=== PATIENT | male | born 1940 | race Caucasian/White ===

== ENCOUNTER 2016-10-11 11:26 | Observation (INO) | payer MEDICARE, OTHER ==
--- NOTE | 2016-10-11 12:24 | EDPRACDOC ---
- General Information Chief Complaint: Generalized Weakness Stated Complaint: ABNORMAL LABS Time Seen by Provider: 10/11/16 12:10 Information Source: Patient Mode Of Arrival: Ambulance Home Medications: Home Medications Cyanocobalamin (Vitamin B-12) [Vitamin B-12 (cyanocobalamin)] 1,000 mcg PO QAM 10/01/13 Hydroxychloroquine Sulfate [Plaquenil] 200 mg PO BID 10/01/13 Loratadine [Claritin] 10 mg PO QAM 10/01/13 Sucralfate [Carafate] 1 gm PO BID 10/01/13 Amlodipine [Norvasc] 10 mg PO 0900 10/11/16 Amoxicillin/Potassium Clav [Augmentin 875-125 Tablet] 1 each PO .[id number] Bupropion HCl [Wellbutrin] 75 mg PO BID 10/11/16 Calcium Polycarbophil [Fiber Lax] 625 mg PO BID 10/11/16 Cephalexin Monohydrate [Keflex] 500 mg PO BID 10/11/16 Famotidine [Pepcid] 20 mg PO BID 10/11/16 HydrALAZINE (Cardiovascular) [Apresoline] 25 mg TUBE TID 10/11/16 L.acidoph & Paracasei,B.lactis [Probiotic] 1 each PO BID 10/11/16 Losartan Potassium [Cozaar] 100 mg TUBE DAILY 10/11/16 Melatonin/Pyridoxine [Melatonin 3 mg Tablet] 1 each TUBE 199910/11/16 Morphine 0.5mg/Ml Vial 15 mg PEG BID PRN 10/11/16 Ondansetron [Zofran Odt] 4 mg PO TID PRN 10/11/16 Prednisone [Deltasone, Orasone] 10 mg PO 0900 10/11/16 Saliva Substitution Combo No.9 [Biotene] 237 ml MM .Q2H 10/11/16 Tamsulosin HCl [Flomax] 0.4 mg PO 2100 10/11/16 Trazodone HCl [Desyrel] 50 mg PO QHS PRN 10/11/16 Allergies/Adverse Reactions: Allergies Allergy/AdvReac Type Severity Reaction Status Date / Time clindamycin [From Cleocin] Allergy Unknown Verified 10/11/16 11:49 levofloxacin [From Levaquin] Allergy Dizziness Verified 10/11/16 11:49 Sulfa (Sulfonamide Allergy Unknown Verified 10/11/16 11:49 Antibiotics) sulfamethoxazole Allergy Difficulty Verified 10/11/16 11:49 [From Bactrim] Breathing trimethoprim [From Bactrim] Allergy Difficulty Verified 10/11/16 11:49 Breathing - History of Present Illness Onset: unknown Exact Onset of Symptoms: Unknown HPI: Pt states yesterday during PT patient became sob and tachycardia. Pt states his doctor ordered labs and xray and was told had low hgb and "a touch" of pna. C/o generalized weakness and fatigue, sob. Pt states recent admission for MRSA for 9 wks and now is in rehab. Symptoms Started: Reports: Gradually Symptoms Description: Constant Weakness: Bilateral: Generalized Symptoms: Reports: Weak Symptom Severity: Reports: Unable to performs ADL's Relevant History of: Denies: O, Anemia, CVA, DM, Electrolyte disorder, GI Bleed , [place], TIA Associated signs and symptoms:: Reports: None ED Past Medical History - History Reviewed Yes Nurses notes reviewed and agree except as marked - Patient Medical History Cardiac History: Reports: Coronary Artery Disease, Hypertension, Hypercholesterolemia, Valvular Heart Disease Respiratory History: Reports: COPD, Cough, Chronic Bronchitis, Pneumonia, Emphysema GI/ History: Reports: Renal (Kidney) Cancer (right kidney.), Kidney (Renal Surgery) (Right-sided nephrectomy 2007), Gastroesophageal Reflux, Diverticulosis Musculoskeletal History: Reports: Osteoarthritis Psychological History: Denies: Depression, Substance Use Disorder Systemic History: Reports: Cancer (RIGHT RENAL), Anemia, Lupus (and Sjogren's) Surgical History: Reports: Hernia Surgery (left inguinal 1997), Tonsillectomy/ Adnoidectomy, Other (Colostomy 05/2014 for diverticular disease. Colostomy takedown 09/17/14. Foot) - Family Medical History Reports: Hypertension (Mother), Cancer (Father- leukemia. Mother- colon), Stroke (GRANDMOTHER), Cardiac Disorders (Mother- CHF). Denies: Diabetes - Social Medical History Smoking Status: Never smoker Social History: Denies: Substance Use Disorder ETOH: None Substance Abuse: None EDM Review of Systems - Review of Systems Constitutional: Fatigue, Weakness Ears: No Symptoms Reported. negative: Pain, Hearing Loss, Drainage, Ear Pulling Throat: No Symptoms Reported. negative: Pain, Swelling Nose: No Symptoms Reported. negative: Congestion, Bleeding, Discharge, Injection, Swelling, Deformity, Ecchymosis, Tender, Abrasion, Laceration Mouth: No Symptoms Reported. negative: Pain, Drooling Respiratory: Shortness of Breath Cardiovascular: No Symptoms Reported. negative: Chest Pain, Palpitations, Syncope, Edema, Orthopnea, PND, Skin Mottling, Cyanosis Gastrointestinal: No Symptoms Reported. negative: Pain, Constipation, Nausea, Vomiting, Diarrhea, Melena, Formula Intolerance Genitourinary: No Symptoms Reported. negative: Dysuria, Hematuria, Frequency, Discharge, Bleeding, Testicular Pain, Neurological: No Symptoms Reported. negative: Headache, Dizziness, Seizure, Numbness, Weakness, Speech Difficulty, Gait Difficulty Musculoskeletal: No Symptoms Reported. negative: Neck, Chestwall, Ribs, Back, Shoulder, Arm, Elbow, Forearm, Wrist, Hand, Pelvis, Hip, Femur, Knee, Leg, Ankle , Foot Integumentary: No Symptoms Reported. negative: Itching, Rash, Bruising, Wound Allergic/Immunologic: No Symptoms Reported. negative: Hives, Itching Hematologic: No Symptoms Reported. negative: Lymphadenopathy, Easy Bruising, Easy Bleeding Psychiatric: No Symptoms Reported. negative: Anxiety, Depression, Hallucinations, Insomnia, Suicidal - Physical Exam Constitutional: Alert Oriented to: Time, Person, Place Last recorded Vital Signs: Last Vital Signs Temp 98.2 F 10/11/16 11:42 Pulse 95 10/11/16 11:42 Resp 18 10/11/16 11:42 BP 159/74 10/11/16 11:42 Pulse Ox 98 10/11/16 11:42 Oxygen Pulse Oxygen Saturation 98 O2 Device Room Air Oxygen Flow Rate Fraction of Inspired Oxygen ( FIO2) - HEENT Head: Normal ( normocephalic) Eye Exam: Pale Conjunctiva Oropharynx: Normal (Pharynx:Moist without exudate,Gums-no swelling) Tympanic Membrane: Normal ENT EAC: Normal Nose: No Symptoms Reported (septum midline) Neck: Normal (FROM, trachea at midline) - Respiratory/Cardiovascular Respiratory: Normal - CTA (BBS clear to auscultation without adventitious sounds ) Cardiovascular: Normal (RRR without murmur, gallop or rub) - GI Auscultation: Normal (NABS) Palpation: Normal (Soft,No rebound or guarding, non distended) Tenderness: Non tender Rectal Exam: Normal, Heme negative stool Stool: Yellow - Musculoskeletal Back: Normal (Non-Tender) Extremities: Edema (+2 bilateral legs) - Integumentary Skin: Pale Lymphatics: Normal (no adenopathy) - Neurologic Memory Impaired: Normal Motor Function: Normal (Normal tone, Pulses 2+ No cyanosis or edema, FROM) Mood Description: Normal Perception: Normal - Differential Diagnosis Anemia, Dehydration, Electrolyte disorder, Other (PNA. Sepsis) - Results 10/11/16 11:42 10/11/16 11:42 - EKG EKG #1 EKG Time: 12:37 Rate: bpm: 90 [place]: Normal Rhythm: NSR Block: 1, AVB, RBBB ST: Normal Comparison: 07/30/16 (no significant change) - Diagnostic Imaging Chest Image interpreted by: Radiologist IMPRESSION: Cardiomegaly with central pulmonary vascular congestion and mild bilateral interstitial edema suggesting mild volume overload/CHF. No evidence of pneumonia seen. - Departure Disposition: Admit IP To This Hospital Condition: Stable Final Diagnosis: Anemia Qualifiers: Anemia type: unspecified type Qualified Code(s): D64.9 - Anemia, unspecified CHF (congestive heart failure) Qualifiers: Congestive heart failure type: unspecified congestive heart failure type Congestive heart failure chronicity: acute Qualified Code(s): I50.9 - Heart failure, unspecified Instructions: Weakness (General), *Heart Failure (Activity, Diet, Worsening Symptoms, Weight Monitoring)(ED) Education/Counseling Given To: Patient, Family Member Education/Counseling Given Regarding: Diagnosis, Treatment Referrals: Pedro Piedra MD [Primary Care Provider] - One Week Prescriptions: No Action Sucralfate [Carafate] 1 gm PO BID Hydroxychloroquine Sulfate [Plaquenil] 200 mg PO BID Loratadine [Claritin] 10 mg PO QAM Cyanocobalamin (Vitamin B-12) [Vitamin B-12 (cyanocobalamin)] 1,000 mcg PO QAM Trazodone HCl [Desyrel] 50 mg PO QHS PRN PRN Reason: Sleep Or Insomnia Saliva Substitution Combo No.9 [Biotene] 237 ml MM .Q2H Ondansetron [Zofran Odt] 4 mg PO TID PRN PRN Reason: Nausea HydrALAZINE (Cardiovascular) [Apresoline] 25 mg TUBE TID Famotidine [Pepcid] 20 mg PO BID Calcium Polycarbophil [Fiber Lax] 625 mg PO BID Bupropion HCl [Wellbutrin] 75 mg PO BID Cephalexin Monohydrate [Keflex] 500 mg PO BID L.acidoph & Paracasei,B.lactis [Probiotic] 1 each PO BID Amoxicillin/Potassium Clav [Augmentin 875-125 Tablet] 1 each PO .[id number] Tamsulosin HCl [Flomax] 0.4 mg PO 2100 Melatonin/Pyridoxine [Melatonin 3 mg Tablet] 1 each TUBE 2000 Prednisone [Deltasone, Orasone] 10 mg PO 0900 Losartan Potassium [Cozaar] 100 mg TUBE DAILY Amlodipine [Norvasc] 10 mg PO 0900 Morphine 0.5mg/Ml Vial 15 mg PEG BID PRN PRN Reason: Pain Decision to Admit Time: 14:58 (Dr Bassett contacted Hospitalist for addmision.) Decision to admit date: 10/11/16 Decision to admit: from ED
--- NOTE | 2016-10-11 12:50 | DIRPT ---
CLINICAL DATA: Anemia, shortness of breath and tachycardia. Generalized weakness and fatigue. EXAM: PORTABLE CHEST 1 VIEW COMPARISON: Chest x-rays dated 09/21/2016 08/04/2016. FINDINGS: Cardiomegaly is stable. Overall cardiomediastinal silhouette is stable in size and configuration. There is mild central pulmonary vascular congestion and mild bilateral interstitial edema. No confluent airspace opacity to suggest a developing pneumonia. No pleural effusions seen. No pneumothorax seen. Osseous and soft tissue structures about the chest are unremarkable, mild degenerative change again noted at the right shoulder and within the thoracic spine. IMPRESSION: Cardiomegaly with central pulmonary vascular congestion and mild bilateral interstitial edema suggesting mild volume overload/CHF. No evidence of pneumonia seen. Electronically Signed By: Saul Alfonso M.D. On: 10/11/2016 12:47
[2016-10-11 13:00] LABS: AUTOMATED BASOPHIL 0.5 % (0-2); AUTOMATED EOSINOPHIL 1.5 % (0-5); AUTOMATED LYMPH 7.3 % (17-44); AUTOMATED MONOCYTE 5.7 % (3-10)
[2016-10-11 13:12] LABS: PARTIAL THROMB. TIME 25.8 SEC (22-35); PT-INR 1.1
[2016-10-11 13:21] LABS: BLOOD UREA NITROGEN 17 MG/DL (9-20); CALC CORRECTED 9.5 MG/DL (8.4-10.2); CALCIUM 8.9 MG/DL (8.4-10.2); CALCULATED OSMOLALITY 261 MOs/Kg (270-290); CHLORIDE 101 mEq/L (98-107); GLUCOSE 79 MG/DL (70-99); SODIUM LEVEL 135 mEq/L (137-146); TOTAL PROTEIN 6.7 G/DL (6.3-8.2)
[2016-10-11] MEDS ORDERED: ONDANSETRON HCL 4 MG ODT TAB PO PRN (15:09)
[2016-10-11] MEDS ORDERED: TRAZODONE 50 MG TAB PO PRN (15:09)
[2016-10-11] MEDS ORDERED: MORPHINE PEG PRN (15:09)
[2016-10-11] MEDS ORDERED: ONDANSETRON HCL 4 MG/2 ML VIAL IV PRN (15:13)
[2016-10-11] MEDS ORDERED: Aluminum;Magnesium;Simethicone 30 ML UDC PO PRN (15:13)
[2016-10-11] MEDS ORDERED: ACETAMINOPHEN 325 MG/TAB TABLET PO PRN (15:13)
[2016-10-11] MEDS ORDERED: SODIUM CHLORIDE 0.9% 3 ML FLUSH FLUSH PRN (15:13)
[2016-10-11] MEDS ORDERED: TEMAZEPAM 15 MG CAP PO PRN (15:13)
[2016-10-11] MEDS ORDERED: IBUPROFEN 400 MG TAB PO PRN (15:13)
[2016-10-11] MEDS ORDERED: Albuterol/Ipratropium Neb 3 ML NEB NEB PRN (15:13)
[2016-10-11] MEDS ORDERED: SALIVA SUBSTITUTION COMBO NO 9 MM SCH (15:15)
--- NOTE | 2016-10-11 15:19 | HISTPHYS ---
- Chief Complaint Patient sent from [facility] in [place] for Hgb. 6.8, labs drawn 10/10/16. Patient states minimal dyspnea with exertion and minimal chronic right shoulder pain. - History of Present Illness Onset: unknown Exact Onset of Symptoms: Unknown HPI: Pt states yesterday during PT patient became sob and tachycardia. Pt states his doctor ordered labs and xray and was told had low hgb and "a touch" of pna. C/o generalized weakness and fatigue, sob. Pt states recent admission for MRSA for 9 wks and now is in rehab. Symptoms Started: Reports: Gradually Symptoms Description: Constant Weakness: Bilateral: Generalized Symptoms: Reports: Weak Symptom Severity: Reports: Unable to performs ADL's Relevant History of: Denies: O, Anemia, CVA, DM, Electrolyte disorder, GI Bleed , [place], TIA Associated signs and symptoms:: Reports: None 75-year-old gentleman sent in for [facility] due to low hemoglobin in the 6 range. Here it was rechecked and found to be 7 but he still requires at least 2 units of packed red blood cells transfusion. Patient states he felt short of breath and tachycardic at physical exam therapy yesterday but has not felt like that today. He has felt weak and tired. He denies any chest pain or shortness of breath no nausea vomiting diarrhea constipation. He does have some shortness of breath and chest x-rays consistent with mild volume overload. Patient will be admitted into the hospital for transfusion of packed red blood cells and treatment of high volume status. - Medical History Cardiac History: Reports: Coronary Artery Disease, Hypertension, Hypercholesterolemia, Valvular Heart Disease Respiratory History: Reports: COPD, Cough, Chronic Bronchitis, Pneumonia, Emphysema GI/ History: Reports: Renal (Kidney) Cancer (right kidney.), Kidney (Renal Surgery) (Right-sided nephrectomy 2007), Gastroesophageal Reflux, Diverticulosis Musculoskeletal History: Reports: Osteoarthritis Systemic History: Reports: Cancer (RIGHT RENAL), Anemia, Lupus (and Sjogren's) Neurological History: Reports: No Significant History Psychological History: Denies: Depression, Substance Use Disorder - Surgical History Reports: Hernia Surgery (left inguinal 1997), Tonsillectomy/Adnoidectomy, Other (Colostomy 05/2014 for diverticular disease. Colostomy takedown 09/17/14. Foot) - Medictions/Allergies Allergies clindamycin [From Cleocin] Allergy (Verified 10/11/16 11:49) Unknown levofloxacin [From Levaquin] Allergy (Verified 10/11/16 11:49) Dizziness Sulfa (Sulfonamide Antibiotics) Allergy (Verified 10/11/16 11:49) Unknown sulfamethoxazole [From Bactrim] Allergy (Verified 10/11/16 11:49) Difficulty Breathing trimethoprim [From Bactrim] Allergy (Verified 10/11/16 11:49) Difficulty Breathing Current Medication List: Reviewed Home Medications Cyanocobalamin (Vitamin B-12) [Vitamin B-12 (cyanocobalamin)] 1,000 mcg PO QAM 10/01/13 Hydroxychloroquine Sulfate [Plaquenil] 200 mg PO BID 10/01/13 Loratadine [Claritin] 10 mg PO QAM 10/01/13 Sucralfate [Carafate] 1 gm PO BID 10/01/13 Amlodipine [Norvasc] 10 mg PO 0900 10/11/16 Amoxicillin/Potassium Clav [Augmentin 875-125 Tablet] 1 each PO .[id number] Bupropion HCl [Wellbutrin] 75 mg PO BID 10/11/16 Calcium Polycarbophil [Fiber Lax] 625 mg PO BID 10/11/16 Cephalexin Monohydrate [Keflex] 500 mg PO BID 10/11/16 Famotidine [Pepcid] 20 mg PO BID 10/11/16 HydrALAZINE (Cardiovascular) [Apresoline] 25 mg TUBE TID 10/11/16 L.acidoph & Paracasei,B.lactis [Probiotic] 1 each PO BID 10/11/16 Losartan Potassium [Cozaar] 100 mg TUBE DAILY 10/11/16 Melatonin/Pyridoxine [Melatonin 3 mg Tablet] 1 each TUBE 199910/11/16 Morphine 0.5mg/Ml Vial 15 mg PEG BID PRN 10/11/16 Ondansetron [Zofran Odt] 4 mg PO TID PRN 10/11/16 Prednisone [Deltasone, Orasone] 10 mg PO 0900 10/11/16 Saliva Substitution Combo No.9 [Biotene] 237 ml MM .Q2H 10/11/16 Tamsulosin HCl [Flomax] 0.4 mg PO 2100 10/11/16 Trazodone HCl [Desyrel] 50 mg PO QHS PRN 10/11/16 - Family History Reports: Hypertension (Mother), Cancer (Father- leukemia. Mother- colon), Stroke (GRANDMOTHER), Cardiac Disorders (Mother- CHF). Denies: Diabetes - Social History Travel Outside of [place] in the Last 3 Months?: No Lives: in Long-Term/SNF Smoking Status: Former smoker Social History: Denies: Alcohol Use, Substance Use Disorder - Review of Systems Constitutional: No Symptoms Reported (No Fever, chills, wt loss/gain, diaphoresis/malaise.), Fatigue. negative: Weight gain Eyes: No Symptoms Reported (No blurry vision, visual changes, eye pain, or eye redness.) Ears: No Symptoms Reported (No ear pain or discharge) Nose: No Symptoms Reported (No nasal discharge/congestion or bleeding) Mouth: No Symptoms Reported (No oropharyngeal lesions or erythema) Throat/Neck: No Symptoms Reported (No throat pain or swelling.No oropharyngeal lesions or erythema.) Respiratory: Shortness of Breath, Dyspnea. negative: Wheezing, Sputum, Pleurisy Cardiovascular: No Symptoms Reported (No chest pain or palpitations.) Gastrointestinal: No Symptoms Reported (No abdominal pain, nausea, vomiting, diarrhea, constipation, or bloody stool.) Genitourinary: No Symptoms Reported (No dysuria or hematuria.) Neurological: No Symptoms Reported (No headache, dizziness, seizures, or focal weakness.) Musculoskeletal:: No Symptoms Reported Integumentary: No Symptoms Reported (no rashes or lesions) Allergic/Immunologic: No Symptoms Reported (no rashes or lesions) Hematologic: No Symptoms Reported (No chronic anemia, bleeding, or easy bruising.), Other (Lymphatics- no lymph node swelling or pain.) Endocrine: No Symptoms Reported (No thyroid issues, polyuria, or polydipsia.) Psychiatric: No Symptoms Reported (Fully oriented, with normal and appropriate affect.) - Physical Exam Vital Signs: Initial Vitals Temperature 98.2 F 10/11/16 11:42 Pulse Rate 95 10/11/16 11:42 Respiratory Rate 18 10/11/16 11:42 Blood Pressure 159/74 10/11/16 11:42 Pulse Oxygen Saturation 98 10/11/16 11:42 Constitutional: No apparent distress, Well nourished. negative: Well appearing Oriented to: Time, Person, Place - HEENT Head: Normal (normocephalic, atraumatic.), Other (No cervical lymphadenopathy. No supraclavicular lymphadenopathy. Neck: No palpable mass, supple , trachea midline.) Eye: Normal (pupils equal, reactive to light, and round; EOMI, Sclera white) Oropharynx: Normal (Pharynx: Moist without exudate,Gums-no swelling, No oropharyngeal lesions or erythema, Mucous membranes are dry.) Nose: No Symptoms Reported (septum midline, Nares patent, without discharge or bleeding.) Respiratory: Normal - CTA, Rales. negative: Accessory Muscle Use Cardiovascular: Normal (RRR , Normal S1, S2. No murmurs, rubs, or gallops. PMI non-displaced. Carotids: no carotid bruits. No bradycardia or tachycardia. DP pulses 2+ bilaterally.) - GI Auscultation: Normal (normal active sounds) Palpation: Normal (Soft,non distended,nontender. No hepatosplenomegaly.) Tenderness: Non tender (No rebound or guarding) Cross's Sign: Negative - Musculoskeletal Extremities: Edema (2+ pittting) Spine: non-tender - Integumentary Skin: Normal (Clean, dry, and intact. No rashes. No lesions.) Lymphatics: Normal (No cervical lymphadenopathy. No supraclavicular lymphadenopathy.) - Neurologic Memory Impaired: Normal Motor Function: Normal (Motor 5/5 throughout.Normal tone, Pulses 2+ No cyanosis or edema, FROM) Cranial Nerve: Normal (CN II-XII intact sensation, strength 5/5) Cerebellar: Normal (Babinski: toes downgoing bilaterally. Intact Finger to nose. Sensory grossly intact to light touch. Intact rapid alternating movements bilaterally. No pronator drift.) Mood Description: Normal (Fully oriented. Normal and appropriate affect.) Perception: Normal (Normal and appropriate affect.) - Focused CV Perfusion Exam Vital Signs: Last Vital Signs Temp 98.6 F 10/11/16 15:18 Pulse 91 10/11/16 15:18 Resp 18 10/11/16 15:18 BP 164/89 10/11/16 15:18 Pulse Ox 95 10/11/16 15:18 - Lab Results Laboratory Results - last 24 hr 10/11/16 10/11/16 10/11/16 11:42 11:42 11:42 WBC 7.0 RBC 2.95 L Hgb 7.8 L D Hct 24.1 L MCV 82 MCH 26.5 L MCHC 32.5 L RDW 19.4 H Plt Count 259 MPV 8.0 Neut % (Auto) 85.0 H Lymph % (Auto) 7.3 L [place] % (Auto) 5.7 Eos % (Auto) 1.5 Baso % (Auto) 0.5 Absolute Neuts (auto) 5.95 Absolute Lymphs (auto) 0.49 L Vacuolated Neuts 1+ Toxic Granulation 1+ Dohle Bodies Occ Platelet Estimate Occ giant platelet RBC Morphology 1+ ellipto PT INR APTT Sodium 135 L Potassium 3.7 Chloride 101 Carbon Dioxide 23 Anion Gap 15 BUN 17 Creatinine 1.20 Estimated GFR (MDRD) 59 L Glucose 79 Calculated Osmolality 261 L Lactic Acid Calcium 8.9 Corrected Calcium 9.5 Total Bilirubin 0.8 AST 38 ALT 46 Alkaline Phosphatase 89 Troponin I 0.04 Kln-L-Qbrxctjipam Pept 8210 H Total Protein 6.7 Albumin 3.4 L Blood Type O POSITIVE Antibody Screen Negative Crossmatch See Detail 10/11/16 10/11/16 10/11/16 11:42 12:52 14:42 WBC RBC Hgb Hct MCV MCH MCHC RDW Plt Count MPV Neut % (Auto) Lymph % (Auto) [place] % (Auto) Eos % (Auto) Baso % (Auto) Absolute Neuts (auto) Absolute Lymphs (auto) Vacuolated Neuts Toxic Granulation Dohle Bodies Platelet Estimate RBC Morphology PT 11.3 H INR 1.1 APTT 25.8 Sodium Potassium Chloride Carbon Dioxide Anion Gap BUN Creatinine Estimated GFR (MDRD) Glucose Calculated Osmolality Lactic Acid 0.6 L Calcium Corrected Calcium Total Bilirubin AST ALT Alkaline Phosphatase Troponin I 0.04 Tpp-W-Qrhiediinse Pept Total Protein Albumin Blood Type Antibody Screen Crossmatch - Diagnostic Findings Echocardiogram: CONCLUSIONS 1. Overall left ventricular systolic function is normal with, an EF between 65 - 70 %. 2. The left atrium is mildly dilated. 3. There is mild aortic regurgitation. 4. There is trace to mild mitral regurgitation. 5. Mild tricuspid regurgitation present. 6. The right ventricular systolic pressure, as measured by Doppler, is 34mmHg. Electronically Signed By: Sergei Shaw MD -- Electronically Signed On: 14:26:16 Copy to: Caleb Randle MD~ 08/01/16 1426 PORTABLE CHEST 1 VIEW COMPARISON: Chest x-rays dated 09/21/2016 08/04/2016. FINDINGS: Cardiomegaly is stable. Overall cardiomediastinal silhouette is stable in size and configuration. There is mild central pulmonary vascular congestion and mild bilateral interstitial edema. No confluent airspace opacity to suggest a developing pneumonia. No pleural effusions seen. No pneumothorax seen. Osseous and soft tissue structures about the chest are unremarkable, mild degenerative change again noted at the right shoulder and within the thoracic spine. IMPRESSION: Cardiomegaly with central pulmonary vascular congestion and mild bilateral interstitial edema suggesting mild volume overload/CHF. No evidence of pneumonia seen. Electronically Signed By: Saul Alfonso M.D. On: 10/11/2016 12:47 EKG #1 EKG Time: 12:37 Rate: bpm: 90 [place]: Normal Rhythm: NSR Block: 1, AVB, RBBB ST: Normal Comparison: 07/30/16 (no significant change) personally reviewed by me - Assessment (1) Anemia D64.9 - ANEMIA, UNSPECIFIED Acute Qualifiers: Anemia type: unspecified type Iron deficiency anemia type: I Vitamin B12 deficiency anemia type: V Folate deficiency anemia type: F Bone marrow failure anemia type: B Hemolytic anemia type: H Other causes of anemia: O Qualified Code(s): D64.9 - Anemia, unspecified Patient be observed in the hospital overnight. Will transfuse 2 units of packed red blood cells total will check serial H&Hs and follow-up patient's symptoms. He will get diuresed after each unit. (2) Pulmonary edema J81.1 - CHRONIC PULMONARY EDEMA Acute Present on Admission: Yes Qualifiers: Chronicity: acute Qualified Code(s): J81.0 - Acute pulmonary edema Likely due to volume issues in oxygen carrying capacity issues causing problems for cardiac function. Patient will get diuresed and will monitor his volume status closely. - Plan Observe in hospital overnight. Case Care Discussed with: Patient, Family, Nursing Staff Total Time: 65 minutes. Critical Care: No Couseling Time (>50% in counseling/coordination): No
[2016-10-11] MEDS ORDERED: MORPHINE 30 MG IMMED REL TAB PEG PRN (15:59)
[2016-10-11] MEDS ORDERED: DIPHENHYDRAMINE 50 MG/ML VIAL IV ONE ×2 (16:08→16:17)
[2016-10-11] MEDS ORDERED: ACETAMINOPHEN 325 MG/TAB TABLET PO ONE ×2 (16:08→16:17)
[2016-10-11 16:13] VITALS: BMI 24.5
[2016-10-11] MEDS ORDERED: Vaccine Screening Complete SCH (17:00)
[2016-10-11] MEDS ORDERED: ENOXAPARIN 40 MG/0.4 ML PFS SQ SCH (18:00)
[2016-10-11] MEDS: SODIUM CHLORIDE 0.9% 3 ML FLUSH FLUSH SCH (18:03)
[2016-10-11] MEDS: AMOXICILLIN/CLAVULANATE 875 MG TAB PO SCH ×2 (18:04→20:12)
[2016-10-11] MEDS: FUROSEMIDE 20 MG/2 ML VIAL IV SCH (18:37)
[2016-10-11] MEDS ORDERED: FUROSEMIDE 20 MG/2 ML VIAL IV ONE (19:08)
[2016-10-11] MEDS ORDERED: PYRIDOXINE TUBE SCH (20:00)
[2016-10-11] MEDS ORDERED: MELATONIN TUBE SCH (20:00)
[2016-10-11] MEDS: PROBIOTIC BLEND TAB PO SCH (20:11)
[2016-10-11] MEDS: hydrALAZINE 25 MG TAB PO SCH (20:12)
[2016-10-11] MEDS: SUCRALFATE 1 GM TAB PO SCH (20:12)
[2016-10-11] MEDS: POLYCARBOPHIL 500 MG TAB PO SCH (20:13)
[2016-10-11] MEDS: FAMOTIDINE 20 MG TAB PO SCH (20:13)
[2016-10-11] MEDS: HYDROXYCHLOROQUINE 200 MG TAB PO SCH (20:13)
[2016-10-11] MEDS ORDERED: ACIDOPH PO SCH (21:00)
[2016-10-11] MEDS ORDERED: TAMSULOSIN HCL 0.4 MG CAP PO SCH (21:00)
[2016-10-11] MEDS ORDERED: PARACASEI B LACTIS PO SCH (21:00)
[2016-10-12] MEDS: FUROSEMIDE 20 MG/2 ML VIAL IV SCH (03:17)
[2016-10-12] MEDS: hydrALAZINE 25 MG TAB PO SCH (05:58)
[2016-10-12] MEDS: SODIUM CHLORIDE 0.9% 3 ML FLUSH FLUSH SCH (05:58)
[2016-10-12 05:59] LABS: MPV 8.1 fL (7.4-10.4)
[2016-10-12 06:43] LABS: BLOOD UREA NITROGEN 14 MG/DL (9-20); CALCIUM 8.3 MG/DL (8.4-10.2); CALCULATED OSMOLALITY 260 MOs/Kg (270-290); CHLORIDE 100 mEq/L (98-107); GLUCOSE 79 MG/DL (70-99); SODIUM LEVEL 135 mEq/L (137-146)
[2016-10-12 07:40] VITALS: BP 164/84; PULSE 96; TEMP 97.8
[2016-10-12] MEDS: SUCRALFATE 1 GM TAB PO SCH (07:57)
[2016-10-12] MEDS: AMOXICILLIN/CLAVULANATE 875 MG TAB PO SCH (07:57)
[2016-10-12] MEDS: POLYCARBOPHIL 500 MG TAB PO SCH (07:59)
[2016-10-12] MEDS: PROBIOTIC BLEND TAB PO SCH (08:00)
[2016-10-12] MEDS: FAMOTIDINE 20 MG TAB PO SCH (08:01)
[2016-10-12] MEDS: HYDROXYCHLOROQUINE 200 MG TAB PO SCH (08:01)
--- NOTE | 2016-10-12 08:38 | PCM.DCS92 ---
- Final/Secondary Discharge Diagnosis (1) Anemia Acute D64.9 - ANEMIA, UNSPECIFIED Present on Admission: Yes unspecified type [facility] D64.9 - Anemia, unspecified Comment: Patient be observed in the hospital overnight. Will transfuse 2 units of packed red blood cells total will check serial H&Hs and follow-up patient's symptoms. He will get diuresed after each unit. (2) Pulmonary edema Acute J81.1 - CHRONIC PULMONARY EDEMA Present on Admission: Yes acute J81.0 - Acute pulmonary edema Comment: Likely due to volume issues in oxygen carrying capacity issues causing problems for cardiac function. Patient will get diuresed and will monitor his volume status closely. Discharge Disposition: [facility] Discharge Condition: Improved Cognitive Discharge Status: Unimpaired Fuctional Discharge Status: Walker Assistance, Deconditioning, Ambulatory Dysfunction Physician Follow up/Referrals: Pedro Piedra MD [Primary Care Provider] - One Week Home Medications / New Prescriptions: New Docusate Sodium [Colace] 100 mg PO BID #100 cap Ferrous Sulfate 324 mg PO TID #90 tab Ascorbic Acid [Vitamin C] 250 mg PO TID #90 tablet Continue Sucralfate [Carafate] 1 gm PO BID Hydroxychloroquine Sulfate [Plaquenil] 200 mg PO BID Loratadine [Claritin] 10 mg PO QAM Cyanocobalamin (Vitamin B-12) [Vitamin B-12 (cyanocobalamin)] 1,000 mcg PO QAM Trazodone HCl [Desyrel] 50 mg PO QHS PRN PRN Reason: Sleep Or Insomnia Saliva Substitution Combo No.9 [Biotene] 237 ml MM .Q2H Ondansetron [Zofran Odt] 4 mg PO TID PRN PRN Reason: Nausea HydrALAZINE (Cardiovascular) [Apresoline] 25 mg TUBE TID Famotidine [Pepcid] 20 mg PO BID Calcium Polycarbophil [Fiber Lax] 625 mg PO BID Bupropion HCl [Wellbutrin] 75 mg PO BID Cephalexin Monohydrate [Keflex] 500 mg PO BID L.acidoph & Paracasei,B.lactis [Probiotic] 1 each PO BID Amoxicillin/Potassium Clav [Augmentin 875-125 Tablet] 1 each PO .[id number] Tamsulosin HCl [Flomax] 0.4 mg PO 2100 Melatonin/Pyridoxine [Melatonin 3 mg Tablet] 1 each TUBE 1999 Prednisone [Deltasone, Orasone] 10 mg PO 0900 Losartan Potassium [Cozaar] 100 mg TUBE DAILY Amlodipine [Norvasc] 10 mg PO 0900 Morphine 0.5mg/Ml Vial 15 mg PEG BID PRN PRN Reason: Pain Discharge Home Medication List Cyanocobalamin (Vitamin B-12) [Vitamin B-12 (cyanocobalamin)] 1,000 mcg PO QAM 10/01/13 [History Confirmed 10/11/16] Hydroxychloroquine Sulfate [Plaquenil] 200 mg PO BID 10/01/13 [History Confirmed 10/11/16] Loratadine [Claritin] 10 mg PO QAM 10/01/13 [History Confirmed 10/11/16] Sucralfate [Carafate] 1 gm PO BID 10/01/13 [History Confirmed 10/11/16] Amlodipine [Norvasc] 10 mg PO 0900 10/11/16 [History Confirmed 10/11/16] Amoxicillin/Potassium Clav [Augmentin 875-125 Tablet] 1 each PO .[id number] [History Confirmed 10/11/16] Bupropion HCl [Wellbutrin] 75 mg PO BID 10/11/16 [History Confirmed 10/11/16] Calcium Polycarbophil [Fiber Lax] 625 mg PO BID 10/11/16 [History Confirmed ] Cephalexin Monohydrate [Keflex] 500 mg PO BID 10/11/16 [History Confirmed ] Famotidine [Pepcid] 20 mg PO BID 10/11/16 [History Confirmed 10/11/16] HydrALAZINE (Cardiovascular) [Apresoline] 25 mg TUBE TID 10/11/16 [History Confirmed 10/11/16] L.acidoph & Paracasei,B.lactis [Probiotic] 1 each PO BID 10/11/16 [History Confirmed 10/11/16] Losartan Potassium [Cozaar] 100 mg TUBE DAILY 10/11/16 [History Confirmed ] Melatonin/Pyridoxine [Melatonin 3 mg Tablet] 1 each TUBE 199910/11/16 [History Confirmed 10/11/16] Morphine 0.5mg/Ml Vial 15 mg PEG BID PRN 10/11/16 [History Confirmed 10/11/16] Ondansetron [Zofran Odt] 4 mg PO TID PRN 10/11/16 [History Confirmed 10/11/16] Prednisone [Deltasone, Orasone] 10 mg PO 0900 10/11/16 [History Confirmed ] Saliva Substitution Combo No.9 [Biotene] 237 ml MM .Q2H 10/11/16 [History Confirmed 10/11/16] Tamsulosin HCl [Flomax] 0.4 mg PO 2100 10/11/16 [History Confirmed 10/11/16] Trazodone HCl [Desyrel] 50 mg PO QHS PRN 10/11/16 [History Confirmed 10/11/16] Ascorbic Acid [Vitamin C] 250 mg PO TID #90 tablet 10/12/16 [Rx] Docusate Sodium [Colace] 100 mg PO BID #100 cap 10/12/16 [Rx] Ferrous Sulfate 324 mg PO TID #90 tab 10/12/16 [Rx] New Discharge Medications (Rx) Ascorbic Acid [Vitamin C] 250 mg PO TID #90 tablet 10/12/16 [Rx] Docusate Sodium [Colace] 100 mg PO BID #100 cap 10/12/16 [Rx] Ferrous Sulfate 324 mg PO TID #90 tab 10/12/16 [Rx] O2 Device: Room Air Additional Instructions: PATIENT WILL REQUIRE FOLLOW-UP WITH GASTROENTEROLOGY AN OUTPATIENT. WE DID NOT PURSUE GASTROENTEROLOGY CONSULTATION INPATIENT FOR 2 REASONS 1. THE DOCTOR ON-CALL IS NOT THE DOCTOR THE PATIENT WISHES TO SEE 2. THE PATIENT HAD VOLUME ISSUES AND DID NOT WANT TO HAVE HIM UNDERGO EVALUATION BY GI WHILE HE WAS HAVING PROBLEMS WITH VOLUME. THESE ARE NOW RESOLVED. I WOULD RECOMMEND THAT THE PATIENT SEE A DOCTOR PODIATRIC MEDICINE IN THE NEXT 2 WEEKS. I ALSO RECOMMEND THE PATIENT HAVE AN H&H CHECKED EVERY 2-3 DAYS TO FOLLOW HIS HEMOGLOBIN STATUS. I ALSO RECOMMEND THAT HE BE HEME TESTED FROM BELOW AT THE NURSING FACILITY WITH STOOL HEMOCCULTS X3. PATIENT WISHES TO SEE DR. CHILDERS AN OUTPATIENT HE FEELS THAT HE IS DUE FOR A COLONOSCOPY ANYWAY. Diet at Discharge: As Tolerated, Heart Healthy Activity: No Restrictions, As Tolerated Call Office For: Worsening Symptoms, Fever over 100.5, Pain Uncontrolled By Meds - DC Summary Notes Hospital Course Note:: Discharge summary on patient named GABRIELLE HACKETT JR admitted to [facility] on 10/11/16 by Liz Dick MD. Date of discharge is []. This is a very pleasant 75-year-old gentleman known to me from previous admissions to the hospital. He presented to the emergency department with a low hemoglobin in the 6.7 range. He was transfused 2 units of packed red blood cells and his morning hemoglobin is up to 8.7. He was very anxious not to lose his bed at the nursing facility in opted for observation status rather than full admission. He was treated rather aggressively has he had developed some edema due to high output condition related to anemia. Because of that GI consultation was not pursued during this short hospitalization. He will follow up outpatient with a supportability engineer of his choice. This morning on the day of discharge he is feeling significantly better he has no new complaints. He will require H&H testing every 3 days at the nursing facility. I have started him on iron sulfate and vitamin-C to improve absorption of the iron as an outpatient. I have also added a stool softener to his medical regimen. At this point patient is reached maximal benefit of hospitalization. He is stable for discharge back to [facility]. Total Time: 45 min Code: 03591 (>30min.) - Physical Exam Vital Signs: Last Vital Signs Temp 97.8 F 10/12/16 07:34 Pulse 96 10/12/16 07:34 Resp 16 10/12/16 07:34 BP 164/84 10/12/16 07:34 Pulse Ox 96 10/12/16 08:00 Oxygen Pulse Oxygen Saturation 96 O2 Device Room Air Oxygen Flow Rate Fraction of Inspired Oxygen ( FIO2) Constitutional: No apparent distress, Well nourished. negative: Well appearing Oriented to: Time, Person, Place - HEENT Head: Normal (normocephalic, atraumatic.), Other (No cervical lymphadenopathy. No supraclavicular lymphadenopathy. Neck: No palpable mass, supple , trachea midline.) Eye: Normal (pupils equal, reactive to light, and round; EOMI, Sclera white) Oropharynx: Normal (Pharynx: Moist without exudate,Gums-no swelling, No oropharyngeal lesions or erythema, Mucous membranes are dry.) Nose: No Symptoms Reported (septum midline, Nares patent, without discharge or bleeding.) - Respiratory/Cardiovascular Respiratory: Normal - CTA, Rales. negative: Accessory Muscle Use Cardiovascular: Normal (RRR , Normal S1, S2. No murmurs, rubs, or gallops. PMI non-displaced. Carotids: no carotid bruits. No bradycardia or tachycardia. DP pulses 2+ bilaterally.) - GI Auscultation: Normal (normal active sounds) Palpation: Normal (Soft,non distended,nontender. No hepatosplenomegaly.) Tenderness: Non tender (No rebound or guarding) Cross's Sign: Negative - Exam Deferred: Yes - Musculoskeletal Back: Normal (Non-Tender) Extremities: Edema (2+ pittting) - Integumentary Skin: Normal (Clean, dry, and intact. No rashes. No lesions.) Lymphatics: Normal (No cervical lymphadenopathy. No supraclavicular lymphadenopathy.) - Neurologic Memory Impaired: Normal Motor Function: Normal (Motor 5/5 throughout.Normal tone, Pulses 2+ No cyanosis or edema, FROM) Cranial Nerve: Normal (CN II-XII intact sensation, strength 5/5) Cerebellar: Normal (Babinski: toes downgoing bilaterally. Intact Finger to nose. Sensory grossly intact to light touch. Intact rapid alternating movements bilaterally. No pronator drift.) Mood Description: Normal (Fully oriented. Normal and appropriate affect.) Perception: Normal (Normal and appropriate affect.) - Other Exam Other Exam Findings: Laboratory Tests 10/11/16 10/11/16 10/11/16 11:42 11:42 11:42 WBC 7.0 RBC 2.95 L Hgb 7.8 L D Hct 24.1 L MCV 82 MCH 26.5 L MCHC 32.5 L RDW 19.4 H Plt Count 259 MPV 8.0 Neut % (Auto) 85.0 H Lymph % (Auto) 7.3 L [place] % (Auto) 5.7 Eos % (Auto) 1.5 Baso % (Auto) 0.5 Absolute Neuts (auto) 5.95 Absolute Lymphs (auto) 0.49 L Vacuolated Neuts 1+ Toxic Granulation 1+ Dohle Bodies Occ Platelet Estimate Occ giant platelet RBC Morphology 1+ ellipto PT INR APTT Sodium 135 L Potassium 3.7 Chloride 101 Carbon Dioxide 23 Anion Gap 15 BUN 17 Creatinine 1.20 Estimated GFR (MDRD) 59 L Glucose 79 POC Capillary Glucose Calculated Osmolality 261 L Lactic Acid Calcium 8.9 Corrected Calcium 9.5 Magnesium Total Bilirubin 0.8 AST 38 ALT 46 Alkaline Phosphatase 89 Troponin I 0.04 Qbz-G-Zhxrhexalqx Pept 8210 H Total Protein 6.7 Albumin 3.4 L TSH Blood Type O POSITIVE Antibody Screen Negative Crossmatch See Detail 10/11/16 10/11/16 10/11/16 11:42 12:52 14:42 WBC RBC Hgb Hct MCV MCH MCHC RDW Plt Count MPV Neut % (Auto) Lymph % (Auto) [place] % (Auto) Eos % (Auto) Baso % (Auto) Absolute Neuts (auto) Absolute Lymphs (auto) Vacuolated Neuts Toxic Granulation Dohle Bodies Platelet Estimate RBC Morphology PT 11.3 H INR 1.1 APTT 25.8 Sodium Potassium Chloride Carbon Dioxide Anion Gap BUN Creatinine Estimated GFR (MDRD) Glucose POC Capillary Glucose Calculated Osmolality Lactic Acid 0.6 L Calcium Corrected Calcium Magnesium Total Bilirubin AST ALT Alkaline Phosphatase Troponin I 0.04 Xzn-X-Srnvapkovkv Pept Total Protein Albumin TSH Blood Type Antibody Screen Crossmatch 10/11/16 10/11/16 10/11/16 14:42 15:46 16:06 WBC RBC Hgb 7.7 L Hct 23.4 L MCV MCH MCHC RDW Plt Count MPV Neut % (Auto) Lymph % (Auto) [place] % (Auto) Eos % (Auto) Baso % (Auto) Absolute Neuts (auto) Absolute Lymphs (auto) Vacuolated Neuts Toxic Granulation Dohle Bodies Platelet Estimate RBC Morphology PT INR APTT Sodium Potassium Chloride Carbon Dioxide Anion Gap BUN Creatinine Estimated GFR (MDRD) Glucose POC Capillary Glucose 108 H Calculated Osmolality Lactic Acid Calcium Corrected Calcium Magnesium Total Bilirubin AST ALT Alkaline Phosphatase Troponin I Nvs-G-Zokbszmjobj Pept Total Protein Albumin TSH 0.76 Blood Type Antibody Screen Crossmatch 10/12/16 10/12/16 05:10 05:10 WBC 5.5 RBC 3.17 L Hgb 8.7 L D Hct 26.0 L MCV 82 MCH 27.3 MCHC 33.3 RDW 18.4 H Plt Count 247 MPV 8.1 Neut % (Auto) Lymph % (Auto) [place] % (Auto) Eos % (Auto) Baso % (Auto) Absolute Neuts (auto) Absolute Lymphs (auto) Vacuolated Neuts Toxic Granulation Dohle Bodies Platelet Estimate RBC Morphology PT INR APTT Sodium 135 L Potassium 3.4 L Chloride 100 Carbon Dioxide 27 Anion Gap 11 BUN 14 Creatinine 1.20 Estimated GFR (MDRD) 59 L Glucose 79 POC Capillary Glucose Calculated Osmolality 260 L Lactic Acid Calcium 8.3 L Corrected Calcium Magnesium 1.40 L Total Bilirubin AST ALT Alkaline Phosphatase Troponin I Qoy-T-Xsmrdudmcbi Pept Total Protein Albumin TSH Blood Type Antibody Screen Crossmatch
[2016-10-12] MEDS ORDERED: LOSARTAN POTASSIUM 50 MG TAB PEG SCH (09:00)
[2016-10-12] MEDS ORDERED: CYANOCOBALAMIN (Vitamin B-12) 500 MCG TABLET PO SCH (09:00)
[2016-10-12] MEDS ORDERED: PREDNISONE 10 MG TAB PO SCH (09:00)
[2016-10-12] MEDS ORDERED: Loratadine 10 MG TAB PO SCH (09:00)
[2016-10-12] MEDS ORDERED: Non-Formulary Medication ITEM (Losartan Potassium [Cozaar] 100 MG) TUBE SCH (09:00)
[2016-10-12] MEDS ORDERED: AMLODIPINE 10 MG TAB PO SCH (09:00)
--- NOTE | 2016-10-12 11:38 | PCM.DCS92 ---
- Final/Secondary Discharge Diagnosis (1) Anemia Acute D64.9 - ANEMIA, UNSPECIFIED Present on Admission: Yes unspecified type D64.9 - Anemia, unspecified Comment: Patient be observed in the hospital overnight. Will transfuse 2 units of packed red blood cells total will check serial H&Hs and follow-up patient's symptoms. He will get diuresed after each unit. (2) Pulmonary edema Acute J81.1 - CHRONIC PULMONARY EDEMA Present on Admission: Yes acute J81.0 - Acute pulmonary edema Comment: Likely due to volume issues in oxygen carrying capacity issues causing problems for cardiac function. Patient will get diuresed and will monitor his volume status closely. Discharge Disposition: [facility] Discharge Condition: Improved Cognitive Discharge Status: Unimpaired Fuctional Discharge Status: Walker Assistance, Deconditioning, Ambulatory Dysfunction Physician Follow up/Referrals: Pedro Piedra MD [Primary Care Provider] - One Week Home Medications / New Prescriptions: New Docusate Sodium [Colace] 100 mg PO BID #100 cap Ferrous Sulfate 324 mg PO TID #90 tab Ascorbic Acid [Vitamin C] 250 mg PO TID #90 tablet Continue Sucralfate [Carafate] 1 gm PO BID Hydroxychloroquine Sulfate [Plaquenil] 200 mg PO BID Loratadine [Claritin] 10 mg PO QAM Cyanocobalamin (Vitamin B-12) [Vitamin B-12 (cyanocobalamin)] 1,000 mcg PO QAM Trazodone HCl [Desyrel] 50 mg PO QHS PRN PRN Reason: Sleep Or Insomnia Saliva Substitution Combo No.9 [Biotene] 237 ml MM .Q2H Ondansetron [Zofran Odt] 4 mg PO TID PRN PRN Reason: Nausea HydrALAZINE (Cardiovascular) [Apresoline] 25 mg TUBE TID Famotidine [Pepcid] 20 mg PO BID Calcium Polycarbophil [Fiber Lax] 625 mg PO BID Bupropion HCl [Wellbutrin] 75 mg PO BID Cephalexin Monohydrate [Keflex] 500 mg PO BID L.acidoph & Paracasei,B.lactis [Probiotic] 1 each PO BID Amoxicillin/Potassium Clav [Augmentin 875-125 Tablet] 1 each PO .[id number] Tamsulosin HCl [Flomax] 0.4 mg PO 2100 Melatonin/Pyridoxine [Melatonin 3 mg Tablet] 1 each TUBE 2000 Prednisone [Deltasone, Orasone] 10 mg PO 0900 Losartan Potassium [Cozaar] 100 mg TUBE DAILY Amlodipine [Norvasc] 10 mg PO 0900 Morphine 0.5mg/Ml Vial 15 mg PEG BID PRN PRN Reason: Pain Discharge Home Medication List Cyanocobalamin (Vitamin B-12) [Vitamin B-12 (cyanocobalamin)] 1,000 mcg PO QAM 10/01/13 [History Confirmed 10/11/16] Hydroxychloroquine Sulfate [Plaquenil] 200 mg PO BID 10/01/13 [History Confirmed 10/11/16] Loratadine [Claritin] 10 mg PO QAM 10/01/13 [History Confirmed 10/11/16] Sucralfate [Carafate] 1 gm PO BID 10/01/13 [History Confirmed 10/11/16] Amlodipine [Norvasc] 10 mg PO 0900 10/11/16 [History Confirmed 10/11/16] Amoxicillin/Potassium Clav [Augmentin 875-125 Tablet] 1 each PO .[id number] [History Confirmed 10/11/16] Bupropion HCl [Wellbutrin] 75 mg PO BID 10/11/16 [History Confirmed 10/11/16] Calcium Polycarbophil [Fiber Lax] 625 mg PO BID 10/11/16 [History Confirmed ] Cephalexin Monohydrate [Keflex] 500 mg PO BID 10/11/16 [History Confirmed ] Famotidine [Pepcid] 20 mg PO BID 10/11/16 [History Confirmed 10/11/16] HydrALAZINE (Cardiovascular) [Apresoline] 25 mg TUBE TID 10/11/16 [History Confirmed 10/11/16] L.acidoph & Paracasei,B.lactis [Probiotic] 1 each PO BID 10/11/16 [History Confirmed 10/11/16] Losartan Potassium [Cozaar] 100 mg TUBE DAILY 10/11/16 [History Confirmed ] Melatonin/Pyridoxine [Melatonin 3 mg Tablet] 1 each TUBE 199910/11/16 [History Confirmed 10/11/16] Morphine 0.5mg/Ml Vial 15 mg PEG BID PRN 10/11/16 [History Confirmed 10/11/16] Ondansetron [Zofran Odt] 4 mg PO TID PRN 10/11/16 [History Confirmed 10/11/16] Prednisone [Deltasone, Orasone] 10 mg PO 0900 10/11/16 [History Confirmed ] Saliva Substitution Combo No.9 [Biotene] 237 ml MM .Q2H 10/11/16 [History Confirmed 10/11/16] Tamsulosin HCl [Flomax] 0.4 mg PO 2100 10/11/16 [History Confirmed 10/11/16] Trazodone HCl [Desyrel] 50 mg PO QHS PRN 10/11/16 [History Confirmed 10/11/16] Ascorbic Acid [Vitamin C] 250 mg PO TID #90 tablet 10/12/16 [Rx] Docusate Sodium [Colace] 100 mg PO BID #100 cap 10/12/16 [Rx] Ferrous Sulfate 324 mg PO TID #90 tab 10/12/16 [Rx] New Discharge Medications (Rx) Ascorbic Acid [Vitamin C] 250 mg PO TID #90 tablet 10/12/16 [Rx] Docusate Sodium [Colace] 100 mg PO BID #100 cap 10/12/16 [Rx] Ferrous Sulfate 324 mg PO TID #90 tab 10/12/16 [Rx] O2 Device: Room Air Additional Instructions: PATIENT WILL REQUIRE FOLLOW-UP WITH GASTROENTEROLOGY AN OUTPATIENT. WE DID NOT PURSUE GASTROENTEROLOGY CONSULTATION INPATIENT FOR 2 REASONS 1. THE DOCTOR ON-CALL IS NOT THE DOCTOR THE PATIENT WISHES TO SEE 2. THE PATIENT HAD VOLUME ISSUES AND DID NOT WANT TO HAVE HIM UNDERGO EVALUATION BY GI WHILE HE WAS HAVING PROBLEMS WITH VOLUME. THESE ARE NOW RESOLVED. I WOULD RECOMMEND THAT THE PATIENT SEE A ASSOCIATE PROFESSOR OF THEATRE IN THE NEXT 2 WEEKS. I ALSO RECOMMEND THE PATIENT HAVE AN H&H CHECKED EVERY 2-3 DAYS TO FOLLOW HIS HEMOGLOBIN STATUS. I ALSO RECOMMEND THAT HE BE HEME TESTED FROM BELOW AT THE NURSING FACILITY WITH STOOL HEMOCCULTS X3. PATIENT WISHES TO SEE DR. CHILDERS AN OUTPATIENT HE FEELS THAT HE IS DUE FOR A COLONOSCOPY ANYWAY. Diet at Discharge: As Tolerated, Heart Healthy Activity: No Restrictions, As Tolerated Call Office For: Worsening Symptoms, Fever over 100.5, Pain Uncontrolled By Meds - DC Summary Notes Hospital Course Note:: Discharge summary on patient named GABRIELLE HACKETT JR admitted to [facility] on 10/11/16 by Liz Dick MD. Date of discharge is []. This is a very pleasant 75-year-old gentleman known to me from previous admissions to the hospital. He presented to the emergency department with a low hemoglobin in the 6.7 range. He was transfused 2 units of packed red blood cells and his morning hemoglobin is up to 8.7. He was very anxious not to lose his bed at the nursing facility in opted for observation status rather than full admission. He was treated rather aggressively has he had developed some edema due to high output condition related to anemia. Because of that GI consultation was not pursued during this short hospitalization. He will follow up outpatient with a dorr operator of his choice. This morning on the day of discharge he is feeling significantly better he has no new complaints. He will require H&H testing every 3 days at the nursing facility. I have started him on iron sulfate and vitamin-C to improve absorption of the iron as an outpatient. I have also added a stool softener to his medical regimen. At this point patient is reached maximal benefit of hospitalization. He is stable for discharge back to [place]. Total Time: 45 min Code: 68451 (>30min.) - Physical Exam Vital Signs: Last Vital Signs Temp 97.8 F 10/12/16 07:34 Pulse 96 10/12/16 07:34 Resp 16 10/12/16 07:34 BP 164/84 10/12/16 07:34 Pulse Ox 96 10/12/16 08:00 Oxygen Pulse Oxygen Saturation 96 O2 Device Room Air Oxygen Flow Rate Fraction of Inspired Oxygen ( FIO2) Constitutional: No apparent distress, Well nourished. negative: Well appearing Oriented to: Time, Person, Place - HEENT Head: Normal (normocephalic, atraumatic.), Other (No cervical lymphadenopathy. No supraclavicular lymphadenopathy. Neck: No palpable mass, supple , trachea midline.) Eye: Normal (pupils equal, reactive to light, and round; EOMI, Sclera white) Oropharynx: Normal (Pharynx: Moist without exudate,Gums-no swelling, No oropharyngeal lesions or erythema, Mucous membranes are dry.) Nose: No Symptoms Reported (septum midline, Nares patent, without discharge or bleeding.) - Respiratory/Cardiovascular Respiratory: Normal - CTA, Rales. negative: Accessory Muscle Use Cardiovascular: Normal (RRR , Normal S1, S2. No murmurs, rubs, or gallops. PMI non-displaced. Carotids: no carotid bruits. No bradycardia or tachycardia. DP pulses 2+ bilaterally.) - GI Auscultation: Normal (normal active sounds) Palpation: Normal (Soft,non distended,nontender. No hepatosplenomegaly.) Tenderness: Non tender (No rebound or guarding) Cross's Sign: Negative - Exam Deferred: Yes - Musculoskeletal Back: Normal (Non-Tender) Extremities: Edema (2+ pittting) - Integumentary Skin: Normal (Clean, dry, and intact. No rashes. No lesions.) Lymphatics: Normal (No cervical lymphadenopathy. No supraclavicular lymphadenopathy.) - Neurologic Memory Impaired: Normal Motor Function: Normal (Motor 5/5 throughout.Normal tone, Pulses 2+ No cyanosis or edema, FROM) Cranial Nerve: Normal (CN II-XII intact sensation, strength 5/5) Cerebellar: Normal (Babinski: toes downgoing bilaterally. Intact Finger to nose. Sensory grossly intact to light touch. Intact rapid alternating movements bilaterally. No pronator drift.) Mood Description: Normal (Fully oriented. Normal and appropriate affect.) Perception: Normal (Normal and appropriate affect.) - Other Exam Other Exam Findings: Laboratory Tests 10/11/16 10/11/16 10/11/16 11:42 11:42 11:42 WBC 7.0 RBC 2.95 L Hgb 7.8 L D Hct 24.1 L MCV 82 MCH 26.5 L MCHC 32.5 L RDW 19.4 H Plt Count 259 MPV 8.0 Neut % (Auto) 85.0 H Lymph % (Auto) 7.3 L [place] % (Auto) 5.7 Eos % (Auto) 1.5 Baso % (Auto) 0.5 Absolute Neuts (auto) 5.95 Absolute Lymphs (auto) 0.49 L Vacuolated Neuts 1+ Toxic Granulation 1+ Dohle Bodies Occ Platelet Estimate Occ giant platelet RBC Morphology 1+ ellipto PT INR APTT Sodium 135 L Potassium 3.7 Chloride 101 Carbon Dioxide 23 Anion Gap 15 BUN 17 Creatinine 1.20 Estimated GFR (MDRD) 59 L Glucose 79 POC Capillary Glucose Calculated Osmolality 261 L Lactic Acid Calcium 8.9 Corrected Calcium 9.5 Magnesium Total Bilirubin 0.8 AST 38 ALT 46 Alkaline Phosphatase 89 Troponin I 0.04 Vmi-Z-Vkglzineksp Pept 8210 H Total Protein 6.7 Albumin 3.4 L TSH Blood Type O POSITIVE Antibody Screen Negative Crossmatch See Detail 10/11/16 10/11/16 10/11/16 11:42 12:52 14:42 WBC RBC Hgb Hct MCV MCH MCHC RDW Plt Count MPV Neut % (Auto) Lymph % (Auto) [place] % (Auto) Eos % (Auto) Baso % (Auto) Absolute Neuts (auto) Absolute Lymphs (auto) Vacuolated Neuts Toxic Granulation Dohle Bodies Platelet Estimate RBC Morphology PT 11.3 H INR 1.1 APTT 25.8 Sodium Potassium Chloride Carbon Dioxide Anion Gap BUN Creatinine Estimated GFR (MDRD) Glucose POC Capillary Glucose Calculated Osmolality Lactic Acid 0.6 L Calcium Corrected Calcium Magnesium Total Bilirubin AST ALT Alkaline Phosphatase Troponin I 0.04 Tpj-X-Wncundnnyuv Pept Total Protein Albumin TSH Blood Type Antibody Screen Crossmatch 10/11/16 10/11/16 10/11/16 14:42 15:46 16:06 WBC RBC Hgb 7.7 L Hct 23.4 L MCV MCH MCHC RDW Plt Count MPV Neut % (Auto) Lymph % (Auto) [place] % (Auto) Eos % (Auto) Baso % (Auto) Absolute Neuts (auto) Absolute Lymphs (auto) Vacuolated Neuts Toxic Granulation Dohle Bodies Platelet Estimate RBC Morphology PT INR APTT Sodium Potassium Chloride Carbon Dioxide Anion Gap BUN Creatinine Estimated GFR (MDRD) Glucose POC Capillary Glucose 108 H Calculated Osmolality Lactic Acid Calcium Corrected Calcium Magnesium Total Bilirubin AST ALT Alkaline Phosphatase Troponin I Wjt-E-Nmqhhohqtas Pept Total Protein Albumin TSH 0.76 Blood Type Antibody Screen Crossmatch 10/12/16 10/12/16 05:10 05:10 WBC 5.5 RBC 3.17 L Hgb 8.7 L D Hct 26.0 L MCV 82 MCH 27.3 MCHC 33.3 RDW 18.4 H Plt Count 247 MPV 8.1 Neut % (Auto) Lymph % (Auto) [place] % (Auto) Eos % (Auto) Baso % (Auto) Absolute Neuts (auto) Absolute Lymphs (auto) Vacuolated Neuts Toxic Granulation Dohle Bodies Platelet Estimate RBC Morphology PT INR APTT Sodium 135 L Potassium 3.4 L Chloride 100 Carbon Dioxide 27 Anion Gap 11 BUN 14 Creatinine 1.20 Estimated GFR (MDRD) 59 L Glucose 79 POC Capillary Glucose Calculated Osmolality 260 L Lactic Acid Calcium 8.3 L Corrected Calcium Magnesium 1.40 L Total Bilirubin AST ALT Alkaline Phosphatase Troponin I Cir-M-Dvnbbewukwd Pept Total Protein Albumin TSH Blood Type Antibody Screen Crossmatch <Electronically signed by Liz Dick MD> 10/12/16 0841 Courtesy Copy to:: Pedro Piedra MD~ MTDD
== END 2016-10-12 11:19 ==
LOC: ED 11:26 → PCU 15:22
PROVIDERS: ADMIT Hospitalist; ATTEND Hospitalist
DX: D64.9 Anemia, unspecified (principal); J81.0 Acute pulmonary edema; Z79.52 Long term (current) use of systemic steroids; R06.02 Shortness of breath; R53.1 Weakness; J44.9 Chronic obstructive pulmonary disease, unspecified; I25.10 Atherosclerotic heart disease of native coronary artery without angina pectoris; I10 Essential (primary) hypertension; E78.00 Pure hypercholesterolemia, unspecified; Z79.899 Other long term (current) drug therapy; Z87.891 Personal history of nicotine dependence
CPT/HCPCS: 36415; 36430; 71010; 80048; 80053; 81001; 82270; 82962; 83605; 83735; 83880; 84443; 84484; 85007; 85014; 85018; 85025; 85027; 85610; 85730; 86850; 86900; 86901; 86920; 87086; 93005; 96372; 99283; A9270; G0237; G0378; J1650; J1940; P9016; J1200; J3490